=== PATIENT | male | born 1995 | race Caucasian/White ===

== ENCOUNTER 2019-10-14 10:05 | Inpatient (IN) | payer SELFPAY ==
[2019-10-14] MEDS ORDERED: ONDANSETRON 4 MG/2 ML VIAL ONE (10:36)
[2019-10-14] MEDS ORDERED: NA CHLORIDE 0.9% 1,000 ML ONE (10:36)
[2019-10-14 10:37] LABS: Absolute Lymphocytes (CBC) 0.6 K/uL (0.7-4.9); Basophils % 0.2 % (0-1.3); Hematocrit 39.7 % (39.6-49.0); Lymphocytes % 4.7 % (15.3-44.8); MPV 8.7 fL (7.6-11.3)
[2019-10-14] MEDS ORDERED: MORPHINE 4 MG/ML SYR ONE (10:45)
[2019-10-14 10:54] LABS: ALT/SGPT 20 U/L (12-78); AST/SGOT 8 U/L (15-37); Albumin 4.6 g/dL (3.4-5.0); Alkaline Phosphatase 61 U/L (45-117); BUN Blood Urea Nitrogen 12 mg/dL (7-18); Bicarbonate 28 mmol/L (21-32); Bilirubin Direct 0.2 mg/dL (0-0.2); Bilirubin Total 0.9 mg/dL (0.2-1.0); Glucose Level 107 mg/dL (74-106); Lipase 59 U/L (73-393); Potassium 3.8 mmol/L (3.5-5.1); Protein, Total 7.8 g/dL (6.4-8.2); Sodium Level 137 mmol/L (136-145)
--- NOTE | 2019-10-14 11:20 | RAD REPORT ---
EXAM DESCRIPTION: CT - Abdomen Pelvis W Contrast - 10/14/2019 10:49 am CLINICAL HISTORY: lower abdominal pain, vomiting COMPARISON: No comparisons TECHNIQUE: Biphasic, helical CT imaging of the abdomen and pelvis was performed following 100 ml non -ionic IV contrast. No oral contrast administered. All CT scans are performed using dose optimization technique as appropriate and may include automated exposure control or mA/KV adjustment according to patient size. FINDINGS: No suspicious findings in the lung bases. The liver, spleen, and pancreas show no suspicious findings. Gallbladder and biliary tree are also wi thout suspicious finding. Symmetric renal function is seen with no hydronephrosis or suspicious renal mass. No pyelonephritis o r acute parenchymal process. No bladder abnormalities. No adrenal abnormalities. No stomach or acute small bowel finding confirmed. Trace amount of free fluid is seen in the dependen t portion of the pelvis. No free air or pneumatosis. A clearly definable common normal appendix is no t identified. There is a right lower quadrant tubular structure 12 mm in diameter that is suspicious for an abnormal appendix. At the base of the structure there is a 10 millimeter calcification suspici ous for an appendicolith. This structure is difficult to clearly differentiate from the on opacified small bowel. Current findings are considered suspicious for acute appendicitis and need clinical correlation. Foll ow-up imaging after oral contrast may be helpful for further characterization of the right lower quad rant structures. No hernia, mass or bulky lymphadenopathy. No suspicious bony findings. IMPRESSION: As detailed above, right lower quadrant findings are acute appendicitis. No abscess, shira e air or other complicating factor. The cecum is positioned low in the right lower quadrant at the pelvic floor with the probable abnorma l appendix extending superiorly.
--- NOTE | 2019-10-14 11:45 | ER ---
Nurse's Notes [facility] Name: Patrick Beebe Age: 24 yrs Sex: Male : 1995 Arrival Date: 10/14/2019 Time: 10:08 Bed 5 Private MD: Diagnosis: Acute appendicitis Presentation: 10/13 10:18 Chief complaint: Patient states: pain below umbilicus and mid back that began ss yesterday. Also c/o N/V. Denies fever. Coronavirus screen: Client denies travel out of the [place] in the last 14 days. Ebola Screen: Patient denies exposure to infectious person. Patient denies travel to an Ebola-affected area in the 21 days before illness onset. Initial Sepsis Screen: Does the patient meet any 2 criteria? No. Patient's initial sepsis screen is negative. Does the patient have a suspected source of infection? No. Patient's initial sepsis screen is negative. Risk Assessment: Do you want to hurt yourself or someone else? Patient reports no desire to harm self or others. Onset of symptoms was October 13, 2019. 10:18 Method Of Arrival: Ambulatory ss 10:18 Acuity: SLICK 3 ss Historical: - Allergies: 10:20 PENICILLINS; ss - Home Meds: 10:20 None [Active]; ss - PMHx: 10:20 None; ss - PSHx: 10:20 None; ss - Immunization history:: Adult Immunizations up to date. - Social history:: Smoking status: Patient denies any tobacco usage or history of. Screenin:33 Abuse screen: Denies threats or abuse. Nutritional screening: No deficits noted. tw2 Tuberculosis screening: No symptoms or risk factors identified. Fall Risk None identified. Assessment: 10:12 General: Appears uncomfortable, slender, well groomed, Behavior is calm, cooperative, tw2 appropriate for age. Pain: Complains of pain in right lower quadrant and left lower quadrant. Neuro: Level of Consciousness is awake, alert, obeys commands, Oriented to person, place, time, situation. Cardiovascular: Heart tones S1 S2 Patient's skin is warm and dry. Respiratory: Airway is patent Respiratory effort is even, unlabored, Respiratory pattern is regular, symmetrical, Breath sounds are clear bilaterally. GI: Bowel sounds present X 4 quads. Abd is soft X 4 quads Reports lower abdominal pain, nausea, vomiting, since last night. : No signs and/or symptoms were reported regarding the genitourinary system. EENT: No signs and/or symptoms were reported regarding the EENT system. Derm: No signs and/or symptoms reported regarding the dermatologic system. Musculoskeletal: Range of motion: intact in all extremities. 11:21 Reassessment: Patient appears in no apparent distress at this time. Patient and/or tw2 family updated on plan of care and expected duration. Pain level reassessed. Patient is alert, oriented x 3, equal unlabored respirations, skin warm/dry/pink. 12:25 Reassessment: Patient appears in no apparent distress at this time. Patient and/or tw2 family updated on plan of care and expected duration. Pain level reassessed. Patient is alert, oriented x 3, equal unlabored respirations, skin warm/dry/pink. 13:17 Reassessment: Patient appears in no apparent distress at this time. Patient and/or tw2 family updated on plan of care and expected duration. Pain level reassessed. Patient is alert, oriented x 3, equal unlabored respirations, skin warm/dry/pink. Vital Signs: 10:18 BP 140 / 87; Pulse 56; Resp 16; Temp 98.2(TE); Pulse Ox 100% on R/A; Weight 78.47 kg; ss Height 6 ft. 3 in. (190.50 cm); Pain 7/10; 11:01 Pain 5/10; tw2 11:20 BP 117 / 86; Pulse 49; Resp 17; Pulse Ox 99% on R/A; tw2 12:20 BP 117 / 54; Pulse 61; Resp 17; Pulse Ox 99% on R/A; tw2 13:19 BP 123 / 80; Pulse 57; Resp 17; Pulse Ox 99% on R/A; tw2 10:18 Body Mass Index 21.62 (78.47 kg, 190.50 cm) ED Course: 10:08 Patient arrived in ED. mr 10:12 Richard Schuster PA is PHCP. jmm 10:12 Fletcher Ortiz MD is Attending Physician. jmm 10:19 Triage completed. ss 10:20 Arm band placed on right wrist. ss 10:23 Rody Hinojosa, JOHANA is Primary Nurse. tw2 10:30 Inserted saline lock: 20 gauge 24 gauge antecubital area, using aseptic technique. tw2 Blood collected. 10:33 Bed in low position. Call light in reach. Pulse ox on. NIBP on. tw2 10:49 CT Abd/Pelvis - IV Contrast Only In Process Unspecified. EDMS 11:44 Greg Maldonado MD is Hospitalizing Provider. [facility] 13:17 No provider procedures requiring assistance completed. tw2 13:21 Patient admitted, IV remains in place. tw2 Administered Medications: 10:30 Drug: NS 0.9% 1000 ml Route: IV; Rate: 1 bolus; Site: right antecubital; tw2 11:15 Follow up: Response: No adverse reaction; IV Status: Completed infusion; IV Intake: tw2 1000ml 10:30 Drug: Zofran (Ondansetron) 4 mg Route: IVP; Site: right antecubital; tw2 11:01 Follow up: Response: No adverse reaction; Nausea is decreased tw2 10:36 Drug: morphine 4 mg Route: IVP; Site: right antecubital; tw2 11:01 Follow up: Pain 5/10 Adult; Response: No adverse reaction; Pain is decreased tw2 11:57 Drug: Cipro 400 mg Volume: 200 ml; Route: IVPB; Infused Over: 60 mins; Site: right tw2 antecubital; 12:57 Follow up: Response: No adverse reaction; IV Status: Completed infusion tw2 Intake: 11:15 IV: 1000ml; Total: 1000ml. tw2 Outcome: 11:44 Decision to Hospitalize by Provider. [facility] 13:19 Admitted to OR tw2 13:19 Admitted to accompanied by nurse, via wheelchair, Report called to JOHANA Mascorro 13:19 Condition: stable 13:19 Instructed on the need for admit. 13:21 Patient left the ED. tw2 Signatures: Dispatcher [employer] EDMS Richard Schuster PA PA jmm RiveraMarilee Shelby, RN RN Rody Drew RN RN tw2
--- NOTE | 2019-10-14 11:45 | EDPHYS ---
Physician Documentation [facility] Name: Patrick Beebe Age: 24 yrs Sex: Male : 1995 Arrival Date: 10/14/2019 Time: 10:08 Bed 5 Private MD: ED Physician Fletcher Ortiz HPI: 10/13 10:23 This 24 yrs old Male presents to ER via Ambulatory with complaints of jmm Abdominal Pain, Back Pain, Vomiting. 10:23 The patient presents with abdominal pain in the lower abdomen. Onset: The jmm symptoms/episode began/occurred gradually, 1 day(s) ago. The symptoms do not radiate. Associated signs and symptoms: Pertinent positives: vomiting. The symptoms are described as achy. Modifying factors: The symptoms are alleviated by nothing, the symptoms are aggravated by. Historical: - Allergies: 10:20 PENICILLINS; ss - Home Meds: 10:20 None [Active]; ss - PMHx: 10:20 None; ss - PSHx: 10:20 None; ss - Immunization history:: Adult Immunizations up to date. - Social history:: Smoking status: Patient denies any tobacco usage or history of. ROS: 10:23 Constitutional: Negative for fever, chills, and weight loss, Cardiovascular: Negative jmm for chest pain, palpitations, and edema, Respiratory: Negative for shortness of breath, cough, wheezing, and pleuritic chest pain. 10:23 Abdomen/GI: Positive for abdominal pain, nausea and vomiting. 10:23 All other systems are negative. Exam: 10:23 Constitutional: This is a well developed, well nourished patient who is awake, alert, jmm and in no acute distress. Head/Face: atraumatic. Eyes: EOMI, no conjunctival erythema appreciated ENT: Moist Mucus Membranes Neck: Trachea midline, Supple Chest/axilla: Normal chest wall appearance and motion. Cardiovascular: Regular rate and rhythm. No edema appreciated Respiratory: Normal respirations, no respiratory distress appreciated 10:23 Abdomen/GI: Inspection: abdomen appears normal, Bowel sounds: normal, Palpation: soft, mild abdominal tenderness, in the right lower quadrant and left lower quadrant. 10:23 Musculoskeletal/extremity: ROM: intact in all extremities. 10:23 Skin: Appearance: Color: normal in color. 10:23 Neuro: Motor: is normal. 10:23 Psych: Behavior/mood is pleasant, cooperative. Vital Signs: 10:18 BP 140 / 87; Pulse 56; Resp 16; Temp 98.2(TE); Pulse Ox 100% on R/A; Weight 78.47 kg; ss Height 6 ft. 3 in. (190.50 cm); Pain 7/10; 11:01 Pain 5/10; tw2 11:20 BP 117 / 86; Pulse 49; Resp 17; Pulse Ox 99% on R/A; tw2 12:20 BP 117 / 54; Pulse 61; Resp 17; Pulse Ox 99% on R/A; tw2 13:19 BP 123 / 80; Pulse 57; Resp 17; Pulse Ox 99% on R/A; tw2 10:18 Body Mass Index 21.62 (78.47 kg, 190.50 cm) ss MDM: 10:21 Patient medically screened. [facility] 11:43 Data reviewed: vital signs, nurses notes. Counseling: I had a detailed discussion with dave the patient and/or guardian regarding: the historical points, exam findings, and any diagnostic results supporting the discharge/admit diagnosis, lab results, radiology results, the need for outpatient follow up, the need for further work-up and treatment in the hospital. ED course: I discussed the patient with Dr. Maldonado whom accepted the patient for admission. . 10/13 10:22 Order name: Basic Metabolic Panel; Complete Time: 10:55 [facility] 10/13 10:22 Order name: CBC with Diff; Complete Time: 12:43 [facility] 10/13 10:22 Order name: Hepatic Function; Complete Time: 10:55 [facility] 10/13 10:22 Order name: Lipase; Complete Time: 10:55 [facility] 10/13 11:52 Order name: Basic Metabolic Panel [facility] 10/13 11:52 Order name: Basic Metabolic Panel [facility] 10/13 10:22 Order name: CT Abd/Pelvis - IV Contrast Only; Complete Time: 11:27 [facility] 10/13 11:52 Order name: CBC with Automated Diff [facility] 10/13 11:52 Order name: CBC with Automated Diff [facility] 10/13 11:52 Order name: Lipase [facility] 10/13 11:52 Order name: Lipase [facility] 10/13 11:52 Order name: Liver (Hepatic) Function [facility] 10/13 11:52 Order name: Liver (Hepatic) Function [facility] 10/13 12:40 Order name: CBC Smear Scan; Complete Time: 12:43 [facility] 10/13 10:22 Order name: IV Saline Lock; Complete Time: 10:33 [facility] 10/13 10:22 Order name: Labs collected and sent; Complete Time: 10:33 [facility] 10/13 11:52 Order name: NPO EDMS Administered Medications: 10:30 Drug: NS 0.9% 1000 ml Route: IV; Rate: 1 bolus; Site: right antecubital; tw2 11:15 Follow up: Response: No adverse reaction; IV Status: Completed infusion; IV Intake: tw2 1000ml 10:30 Drug: Zofran (Ondansetron) 4 mg Route: IVP; Site: right antecubital; tw2 11:01 Follow up: Response: No adverse reaction; Nausea is decreased tw2 10:36 Drug: morphine 4 mg Route: IVP; Site: right antecubital; tw2 11:01 Follow up: Pain 5/10 Adult; Response: No adverse reaction; Pain is decreased tw2 11:57 Drug: Cipro 400 mg Volume: 200 ml; Route: IVPB; Infused Over: 60 mins; Site: right tw2 antecubital; 12:57 Follow up: Response: No adverse reaction; IV Status: Completed infusion tw2 Disposition: 17:38 Co-signature as Attending Physician, Fletcher Ortiz MD I agree with the assessment and kdr plan of care. Disposition: 10/14/19 11:44 Hospitalization ordered by Greg Maldonado for Inpatient Admission. Preliminary diagnosis is Acute appendicitis. - Bed requested for Telemetry/MedSurg (Inpatient). - Status is Inpatient Admission. tw2 - Condition is Stable. - Problem is new. - Symptoms are unchanged. Signatures: Dispatcher [employer] [place] Fletcher Ortiz MD MD kdr Mickail, Joel, PA PA jmm Smirch, Shelby, RN RN ss Wise, Tara, RN RN tw2 Corrections: (The following items were deleted from the chart) 13:21 11:44 Hospitalization Ordered by Greg Maldonado MD for Inpatient Admission. Preliminary tw2 diagnosis is Acute appendicitis. Bed requested for Telemetry/MedSurg (Inpatient). Status is Inpatient Admission. Condition is Stable. Problem is new. Symptoms are unchanged. jmm
[2019-10-14] MEDS ORDERED: ACETAMINOPHEN 500 MG TAB PO PRN (11:48)
[2019-10-14] MEDS ORDERED: MORPHINE 4 MG/ML SYR IV PRN ×2 (11:48→15:22)
[2019-10-14] MEDS ORDERED: ONDANSETRON 4 MG/2 ML VIAL IV PRN (11:48)
[2019-10-14] MEDS ORDERED: D5 0.45 NS 1,000 ML IV SCH (12:00)
[2019-10-14] MEDS ORDERED: CIPROFLOXACIN 400mg IV 400 MG/200 ML BAG IV SCH (12:30)
[2019-10-14 12:40] LABS: Blood Morphology Comment NOT SEEN (NOT SEEN); Platelet Estimate ADEQ; Urine White Blood Cell Casts OK
[2019-10-14] MEDS ORDERED: Ringers Lactate 1,000 ML IV ONE ×2 (13:29→15:16)
[2019-10-14] MEDS ORDERED: FENTANYL CITR 100 MCG/2 ML ONE (13:32)
[2019-10-14] MEDS ORDERED: LIDOCAINE 1% MPF 5 ML VIAL ONE (13:32)
[2019-10-14] MEDS ORDERED: MIDAZOLAM HCL 2 MG/2 ML INJ ONE (13:32)
[2019-10-14] MEDS ORDERED: ROCURONIUM 50 MG/5 ML VIAL IV ONE (13:32)
[2019-10-14] MEDS ORDERED: propofoL 200 MG/20 ML VIAL IV ONE (13:32)
--- NOTE | 2019-10-14 14:03 | P.HP ---
Date of Service: 10/14/19 PC: This 24-year-old male presents emergency room with severe right lower quadrant abdominal pain for diagnosis and treatment. HPC: Patient been feeling well until yesterday. Last night began to experience abdominal pain. Good backache comfortable. Pain has intensified and now he has nausea and vomiting associated with it. PMH: Negative PSHx: Negative SOC: Allergic to penicillin SYS REVIEW: No cough, wheeze, shortness of breath. No chest pain or palpitations no urinary complaints O/E awake alert vital signs are stable, looks uncomfortable HEENT: Within normal limb Chest: Air entry equal bilaterally ABD: Tender with guarding in the right lower quadrant LOCO: Intact DATA: Elevated white cell count, CT scan supports clinical diagnosis of acute appendicitis IMPRESSION: Acute abdomen with appendicitis PLAN: I will take to the operating room for laparoscopic possible open appendectomy. The risks of this procedure have been discussed. The possibility of bleeding, infection, injury to bowel and surrounding structures were outlined. The possible need for an open and/or further surgeries and procedures was described. He understands and wants us to proceed.
[2019-10-14] MEDS ORDERED: dexAMETHasone 10 MG/ML VIAL ONE (14:04)
[2019-10-14] MEDS ORDERED: GLYCOPYRROLATE 0.2 MG/ML SYR ONE ×2 (14:51)
[2019-10-14] MEDS ORDERED: NEOSTIGMINE 1 MG/ML -5 ML ONE (14:51)
[2019-10-14] MEDS ORDERED: KETOROLAC 30 MG/ML INJ ONE (14:51)
--- NOTE | 2019-10-14 15:16 | P.OP ---
Preoperative diagnosis: Acute abdomen with appendicitis Postoperative diagnosis: The same Primary procedure: Laparoscopic appy Anesthesia: General Estimated blood loss: Less than 20 cc Specimen: 1 specimen sent for histopathology Operative Technique: The patient was brought to the operating room, placed supine on the table. After the induction of adequate general endotracheal anesthesia, the area of the abdomen was prepped with a DuraPrep solution, and he was draped in the usual aseptic manner. A subumbilical incision was made. This was brought down through the skin and subcutaneous tissue. The Visiport was used to enter the peritoneal cavity cavity and create pneumoperitoneum to approximately 12 mm of mercury. Under direct vision a 5 mm trocar was placed in the lower midline and another 5 mm in the right upper quadrant. The patient was then positioned in Trendelenburg and rolled to the left side. We were able to visualize right lower quadrant. The cecum could be see her AE into the true pelvis. There was gently elevated at this point we could see the tenia and tracing it we found the appendix itself. There was noted be markedly dilated with signs of acute inflammation. The appendix was grasped. A hole was made in the opening at the mesentery of the appendix. This enabled us to place our linear Stapler across the base of the appendix which was fired. The mesentery of the appendix was then carefully taken down using electro cautery avoiding any injury to the bowel. Appendix having been detached, was placed into an Endo-Catch, and brought out through the umbilical port site. Attention was turned back towards the right lower quadrant. The area was gently irrigated with the saline solution. The effluent was aspirated. 0.25% Marcaine was aerosolize into the right lower quadrant. Attention was turned towards the umbilical trocar. Using the endo-close absorbable sutures were placed to close the defect. The patient was now returned to the neutral position on the OR table. The pneumoperitoneum was collapsed, the umbilical sutures tied, and gurvinder applied to the skin. At the end of the procedure the patient was in stable condition and sent to the recovery room. Needle sponge and instrument count were correct. 1 specimen was sent for histopathology. Sterile dressings had been applied. Complications: None Transferred to: Recovery Room Condition: Good
[2019-10-14] MEDS ORDERED: HYDROCODONE/APAP 7.5/325 MG TAB PO PRN (15:22)
[2019-10-14] MEDS ORDERED: MEPERIDINE HCL 25 MG/ML SYR ONE (15:31)
[2019-10-14 15:54] VITALS: O2SAT 98
[2019-10-14 16:14] VITALS: BP 94/50; TEMP 98.1
[2019-10-14] MEDS ORDERED: METRONIDAZOLE 500mg IVPB 500 MG/100 ML BAG IV SCH (17:00)
[2019-10-14 17:45] VITALS: BMI 21.9
== END 2019-10-14 21:09 | disposition home or self-care (01) | DRG 343 ==
LOC: ER 10:05 → ERHOLD 12:09 → 2ND 15:39
PROVIDERS: ADMIT Surgery; ATTEND Surgery
PROC: 0DTJ4ZZ Resection of Appendix, Percutaneous Endoscopic Approach (ICD-10-PCS; principal; 2019-10-14 14:00)
DX: K35.80 Unspecified acute appendicitis (principal); Z88.0 Allergy status to penicillin
CPT/HCPCS: 36415; 74177; 80048; 80076; 82565; 83690; 85025; 88304; 96361; 96365; 96375; 99285; J0744; J1100; J2175; J2250; J2405; J2704; J2710; J3010; J7030; J7120; J7799; Q9967; U0002